=== PATIENT | male | born 1985 | race Caucasian/White ===

== ENCOUNTER 2023-12-21 20:11 | Emergency (ER) | payer SELFPAY ==
[2023-12-21 20:33] VITALS: BP 136/84; PULSE 68; RESP 20; TEMP 99.1; BMI 34.4
[2023-12-21] MEDS ORDERED: ACETAMINOPHEN INJECTION 100 ML IVPB ONE (21:15)
[2023-12-21] MEDS ORDERED: ONDANSETRON 4 MG/2 ML VIAL ONE (21:15)
[2023-12-21 21:37] LABS: BASO % 0.4 % (0-2.0); EOS % 1.1 % (0-4.5); HEMATOCRIT 38.7 % (35.4-49); HEMOGLOBIN 13.3 GM/dL (11.7-16.9); LYMPH % 25.3 % (8-40); MCH 30.6 pg (25.7-33.7); MCHC 34.3 g/dl (32.0-35.9); MEAN CELL VOLUME 89.2 fl (80-96); MEAN PLT VOLUME 6.7 fl (7.5-11.1); NEUT % 66.2 % (42.8-82.8); PLATELET COUNT 249 10^3/uL (134-434); RBC 4.34 M/mm3 (4.00-5.60); RDW 12.8 % (11.9-15.9)
[2023-12-21] MEDS: SODIUM CHLORIDE 0.9% 500 ML INFUS.BAG IV ONE (21:37)
[2023-12-21] MEDS: ACETAMINOPHEN 1000 MG/100 ML BAG IVPB ONE (21:37)
[2023-12-21] MEDS: ONDANSETRON 4 MG/2 ML VIAL IVPUSH ONE (21:38)
[2023-12-21 21:54] LABS: POTASSIUM 4.1 mmol/L (3.5-5.1)
[2023-12-21 21:56] LABS: CALCIUM 8.5 mg/dL (8.5-10.1)
[2023-12-21 21:57] LABS: ALBUMIN 3.8 g/dl (3.4-5.0); BLOOD UREA NITROGEN 14.4 mg/dL (7-18)
[2023-12-21 22:00] LABS: CREATININE 0.7 mg/dL (0.55-1.3)
[2023-12-21 22:01] LABS: BILIRUBIN,TOTAL 0.5 mg/dL (0.2-1); TOT PROT 7.1 g/dl (6.4-8.2)
[2023-12-21 22:45] LABS: URINE APPEARANCE CLEAR; URINE BILIRUBIN NEGATIVE (NEGATIVE); URINE COLOR YELLOW; URINE GLUCOSE (UA) TRACE (NEGATIVE); URINE KETONE TRACE (NEGATIVE); URINE LEUK ESTERASE NEGATIVE (NEGATIVE); URINE NITRITE NEGATIVE (NEGATIVE); URINE PROTEIN TRACE (NEGATIVE)
== END 2023-12-22 00:13 | disposition home or self-care (01) ==
LOC: JER 20:11
PROC: 3E033NZ Introduction of Analgesics, Hypnotics, Sedatives into Peripheral Vein, Percutaneous Approach (ICD-10-PCS; principal; 2023-12-21)
PROC: 3E033GC Introduction of Other Therapeutic Substance into Peripheral Vein, Percutaneous Approach (ICD-10-PCS; 2023-12-21)
DX: R10.11 Right upper quadrant pain (principal); R11.2 Nausea with vomiting, unspecified
CPT/HCPCS: 36415; 76705-TC; 80053; 81003; 83690; 84484; 85025; 87086; 93005; 93010; 99285-25; J0131